=== PATIENT | male | born 1995 | race Caucasian/White ===

== ENCOUNTER 2017-11-24 19:58 | Emergency (ER) | payer MEDICAID ==
[~2017-11-24] VITALS: Ht 167.6 cm; Wt 53.5 kg
[~2017-11-24 19:58] MED LIST: ALBU90I INH; ALBU90OI INH; AMOX250 PO; AMOX500 PO; ANTOXYBENA LEFTEAR; CLOT1TC TOP; CRUTCH4 USE; LORA1SY PO; METPHE18ER; METPHE18ER PO; PRED15SY PO; PRED5 PO; SPACER IH; [UNRECOGNIZED DRUG - OTHER]
[2017-11-24] MEDS ORDERED: ALBU90OI INH (20:44)
[2017-11-24] MEDS ORDERED: Prednisone20 MG PO (20:44)
== END 2017-11-24 20:48 | disposition home or self-care (01) ==
LOC: ER 19:58
DX: J45.901 Unspecified asthma with (acute) exacerbation (principal)
CPT/HCPCS: 99283

== ENCOUNTER 2018-07-25 23:07 | Emergency (ER) | payer OTHER ==
[~2018-07-25] VITALS: Ht 162.6 cm; Wt 52.2 kg
[~2018-07-25 23:07] MED LIST changes: +Prednisone20 MG PO
[2018-07-25] MEDS ORDERED: PENVK500 PO (23:46)
== END 2018-07-26 00:12 | disposition home or self-care (01) ==
LOC: ER 23:07
DX: K08.89 Other specified disorders of teeth and supporting structures (principal); J45.909 Unspecified asthma, uncomplicated; F17.210 Nicotine dependence, cigarettes, uncomplicated; Z79.899 Other long term (current) drug therapy
CPT/HCPCS: 99282